=== PATIENT | male | born 1985 | race African-American/Black ===

== ENCOUNTER 2019-05-01 02:29 | Emergency (ER) | payer SELFPAY ==
[~2019-05-01] VITALS: Ht 170.2 cm; Wt 90.7 kg
[2019-05-01 02:47] VITALS: BP 138/82
[2019-05-01 03:32] LABS: CLARITY URINE CLEAR (CLEAR); COLOR URINE YELLOW (YELLOW); KETONES URINE NEGATIVE (NEGATIVE); LEUKOCYTE ESTERASE URINE NEGATIVE (NEGATIVE); NITRITE URINE NEGATIVE (NEGATIVE); OCCULT BLOOD URINE TRACE (NEGATIVE); PROTEIN URINE NEGATIVE (NEGATIVE); SPECIFIC GRAVITY URINE 1.021 (1.005-1.030); UROBILINOGEN URINE 0.2 E.U./dL (0.2-1.0)
== END 2019-05-01 04:49 | disposition home or self-care (01) ==
LOC: ER 02:29
DX: R31.9 Hematuria, unspecified (principal); R01.1 Cardiac murmur, unspecified; Z98.890 Other specified postprocedural states
CPT/HCPCS: 99283

== ENCOUNTER 2021-09-11 02:00 | Emergency (ER) | payer SELFPAY ==
[~2021-09-11] VITALS: Ht 170.2 cm; Wt 88.0 kg
[2021-09-11 03:41] LABS: CLARITY URINE CLEAR (CLEAR); COLOR URINE YELLOW (YELLOW); KETONES URINE TRACE (NEGATIVE); LEUKOCYTE ESTERASE URINE NEGATIVE (NEGATIVE); NITRITE URINE NEGATIVE (NEGATIVE); OCCULT BLOOD URINE NEGATIVE (NEGATIVE); PH URINE 5.5 (4.5-8.0); PROTEIN URINE NEGATIVE (NEGATIVE); SPECIFIC GRAVITY URINE 1.025 (1.005-1.030)
[2021-09-11] MEDS ORDERED: DOCU100T PO (04:11)
[2021-09-11 04:39] VITALS: BP 126/64
== END 2021-09-11 04:43 | disposition home or self-care (01) ==
LOC: ER 02:00
DX: K60.2 Anal fissure, unspecified (principal); R31.9 Hematuria, unspecified; K59.00 Constipation, unspecified; Z87.891 Personal history of nicotine dependence
CPT/HCPCS: 81003; 99283

== ENCOUNTER 2023-10-23 00:47 | Emergency (ER) | payer SELFPAY ==
[~2023-10-23] VITALS: Ht 170.2 cm; Wt 100.0 kg
[~2023-10-23 00:47] MED LIST: DOCU100T PO
[2023-10-23 01:36] VITALS: BP 127/90; PULSE 76; RESP 18; TEMP 98.7; O2SAT 98
== END 2023-10-23 06:05 | disposition left against medical advice (07) ==
LOC: ER 00:56
DX: M54.2 Cervicalgia (principal); Z53.21 Procedure and treatment not carried out due to patient leaving prior to being seen by health care provider
CPT/HCPCS: 99281